=== PATIENT | female | born 1935 | race Caucasian/White ===

== ENCOUNTER → 2016-03-19 | Outpatient (CLI) | payer MEDICARE, BC ==
[~2016-03-19] MED LIST: AMLO2.5T78 PO; ASCO500C7 PO; ASPI325T32 PO; ATOR20TA38 PO; CALC600T11 PO; CHOL100062 PO; DOCU-144 PO; HYDR-905 PO; LEVO88TA42 PO; LYRI25 PO; MULTI PO; OMEG-80 PO; PANT40TA4 PO; QUET300T13 PO; TRAM50TA2 PO; [UNRECOGNIZED DRUG - CODE] PO
--- NOTE | 2016-03-19 17:51 | HKNOTE ---
DATE OF SERVICE: 03/19/2016 INTERVAL HISTORY: The patient presents today for a followup examination on her right knee. She is now 5 weeks status post right total knee arthroplasty. She is doing very well over all. Her pain has been minimal. She has been doing home health, but states she is ready for outpatient physical therapy. Unfortunately, she did not take the aspirin as recommended for DVT prophylaxis, but denies any calf pain or tenderness. There has been no swelling. No erythema, warmth, fever or chills. She presents today for postoperative evaluation. PHYSICAL EXAMINATION: On exam today, she is oriented x4, and in no acute distress. She is ambulating well with a walker. Right knee demonstrates a well healed incision. There is no erythema or warmth. There is no soft tissue swelling. Range of motion is 0- 125 degrees. Varus and valgus forces are stable. Homans' sign is negative. Compartments are soft. She is neurovascularly intact distally. IMAGING: None done today. ASSESSMENT: Five weeks, status post right total knee arthroplasty doing very well. DISCUSSION: The patient will begin outpatient physical therapy 2 to 3 times per week. We discussed antibiotic coverage prior to any dental work. A prescription for clindamycin 300 mg to take prior to any dental work was given today. At this point, DVT prophylaxis is not necessary given the patient is almost 6 weeks out from her surgery. She will follow up in 2 months for a repeat evaluation and x-ray. Dictated By: YAYA FRANKLIN for ARELI VANCE/EVERARDO Conf#: [id number] DID#: [id number] DAR
== END | disposition home or self-care (01) ==
LOC: HKI 09:27
PROVIDERS: ATTEND Orthopaedic Surgery
DX: Z47.1 Aftercare following joint replacement surgery (principal); Z96.651 Presence of right artificial knee joint
CPT/HCPCS: G0463

== ENCOUNTER → 2016-05-12 | Outpatient (CLI) | payer MEDICARE, BC ==
--- NOTE | 2016-05-12 17:51 | RADRPT ---
PROCEDURE: Right knee radiographs. CLINICAL INDICATION: Right knee pain. TECHNIQUE: Three views. Weight bearing. Frontal, lateral, and patellar view. COMPARISON: 02/10/2016. FINDINGS: There is no fracture or dislocation. The soft tissues are normal. There is a right knee total arthroplasty which appears satisfactory. There is no evidence of loosen ing. There is no lytic or blastic lesion. There is no joint effusion. IMPRESSION: 1. Satisfactory postoperative appearance of the right knee. RPTAT: QQ .Luis Felipe Aguayo MD, MD Date Time Electronically viewed and signed by .Luis Felipe Aguayo MD, MD on 05/12/2016 17:51 .R/
== END | disposition home or self-care (01) ==
LOC: HKI 09:57
PROVIDERS: ATTEND Orthopaedic Surgery
DX: Z47.1 Aftercare following joint replacement surgery (principal); Z96.651 Presence of right artificial knee joint

== ENCOUNTER → 2016-10-01 | Outpatient (CLI) | payer MEDICARE, BC ==
--- NOTE | 2016-10-01 16:12 | RADRPT ---
PROCEDURE: Right knee radiographs. CLINICAL INDICATION: Right knee pain. Postop. TECHNIQUE: Three views. Weight bearing. Frontal, lateral, and patellar view. COMPARISON: 05/12/2016 FINDINGS: There is no fracture or dislocation. There is a small joint effusion. The soft tissues are otherwise normal. There is a total right knee arthroplasty which appears satisfactory. There is no lytic or blastic lesion. IMPRESSION: 1. Satisfactory postoperative appearance of the right knee. 2. Small joint effusion. RPTAT: QQ .Luis Felipe Aguayo MD, MD Date Time Electronically viewed and signed by .Luis Felipe Aguayo MD, MD on 10/01/2016 16:12 .R/
--- NOTE | 2016-10-01 16:13 | RADRPT ---
PROCEDURE: XR Left hip and pelvis. CLINICAL INDICATION: Left hip pain and pelvic pain. TECHNIQUE: 3 views. Frontal pelvis. Frontal and lateral left hip. COMPARISON: 11/30/2013. FINDINGS: There is no fracture or dislocation. The soft tissues are normal. There are degenerative changes of both hips with joint space narrowing and osteophytes. Right is wo rse than left. There is no lytic or blastic lesion. The upper pelvis is not completely included on the images. IMPRESSION: 1. 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 2. Otherwise unremarkable images of the left hip and pelvis. RPTAT: QQ .Luis Felipe Aguayo MD, MD Date Time Electronically viewed and signed by .Luis Felipe Aguayo MD, MD on 10/01/2016 16:13 .R/
== END | disposition home or self-care (01) ==
LOC: HKI 10:15
PROVIDERS: ATTEND Orthopaedic Surgery
DX: M25.552 Pain in left hip (principal); M70.62 Trochanteric bursitis, left hip; Z96.651 Presence of right artificial knee joint
CPT/HCPCS: 20610; 73502; 73562; G0463; J1030